=== PATIENT | male | born 1960 | race Hispanic/Latino ===

== ENCOUNTER 2016-12-24 12:36 | Emergency (ER) | payer OTHER ==
[2016-12-24 12:43] VITALS: BMI 27.9
[2016-12-24 12:45] VITALS: BP 141/83; PULSE 91; RESP 17; TEMP 97.7; O2SAT 98
--- NOTE | 2016-12-24 13:34 | ED PDOC ---
HPI: General Adult Time Seen by Provider: 12/24/16 13:05 Chief Complaint (Nursing): Abdominal Pain Chief Complaint (Provider): chest pain History Per: Patient (56 y/o male here for right sided chest pain noted 1 hour prior to ED arrival associated with moving boxes. Denies any sob. Took asa 324 x 2 prior to arrival. Denies any radiation of chest pain. Patient denies any DM /HTN/HLD/previous NE. Has family h/o early in brother age 31 secondary to drug use. Has had stress test evaluation for chest pain in past wnl.) Past Medical History Reviewed: Historical Data, Nursing Documentation, Vital Signs Vital Signs: Last Vital Signs Temp 97.7 F 12/24/16 12:43 Pulse 91 H 12/24/16 12:43 Resp 17 12/24/16 12:43 BP 141/83 12/24/16 12:43 Pulse Ox 98 12/25/16 13:44 - Medical History PMH: COPD - Family History Family History: States: No Known Family Hx - Social History Current smoker - smoking cessation education provided: Yes - Immunization History Hx Tetanus Toxoid Vaccination: No Hx Influenza Vaccination: No Hx Pneumococcal Vaccination: No - Home Medications Home Medications: Ambulatory Orders Medication Instructions Recorded Meclizine [Meclizine*] 25 mg PO Q8 #30 tab 09/10/16 - Allergies Allergies/Adverse Reactions: Allergies Allergy/AdvReac Type Severity Reaction Status Date / Time No Known Allergies Allergy Verified 05/27/16 10:47 Review of Systems ROS Statement: Except As Marked, All Systems Reviewed And Found Negative Cardiovascular: Positive for: Chest Pain Physical Exam - Reviewed Nursing Documentation Reviewed: Yes Vital Signs Reviewed: Yes - Physical Exam Appears: Positive for: Well, Non-toxic, No Acute Distress Head Exam: Positive for: ATRAUMATIC, NORMAL INSPECTION, NORMOCEPHALIC Skin: Positive for: Normal Color, Warm, DRY Eye Exam: Positive for: EOMI, Normal appearance, PERRL ENT: Positive for: Normal ENT Inspection Neck: Positive for: Normal, Painless ROM Cardiovascular/Chest: Positive for: Regular Rate, Rhythm Respiratory: Positive for: CNT, Normal Breath Sounds Gastrointestinal/Abdominal: Positive for: Normal Exam, Bowel Sounds, Soft Back: Positive for: Normal Inspection Extremity: Positive for: Normal ROM Neurologic/Psych: Positive for: Alert, Oriented - ECG O2 Sat by Pulse Oximetry: 98 - Progress ED Course And Treament: ekg: nsr 70bpm; no ectopy no acute changes noted patient does not want bloodwork/cxr at this time due to time constraints. States he would prefer to have testing at [facility] located near him. AMA paperwork discussed with him/signed by him. Leaving Against Medical Advice (AMA): This patient is choosing to leave against medical advice. The EP has personally explained to the pt that choosing to do so may result in permanent bodily harm or . The EP discussed at great length that without further evaluation and monitoring there may be unforeseen circumstances and/or deterioration causing permanent bodily harm or as a result of their choice. The pt verbalized these risks back to the physician in laymans terms. The pt is alert , oriented, and shows the mental capacity to make clear decisions regarding the pts health care at this time. The pt continues to wish to leave against medical advice. In light of the pts decision to leave AMA, follow-up has been arranged and the pt is aware of the importance of following up as instructed. The pt has been advised that they should return to the ED immediately if they change their mind at any time, or if thier condition begins to change or worsen in any way. Disposition - Clinical Impression Clinical Impression: Chest pain - Patient ED Disposition Is Patient to be Admitted: No - Disposition Disposition: Against Medical Advice Disposition Time: 13:36 Condition: FAIR Forms: [employer] ([place])
--- NOTE | 2016-12-25 17:45 | CARD ---
APPROVED REPORT EKG Measurement Heart [id number] <Conclusion> Normal sinus rhythm Normal ECG
== END 2016-12-24 14:01 | disposition left against medical advice (07) ==
LOC: H.ER 12:36
DX: R07.89 Other chest pain (principal); J44.9 Chronic obstructive pulmonary disease, unspecified

== ENCOUNTER 2017-11-09 13:54 | Emergency (ER) | payer OTHER ==
[2017-11-09 13:54] VITALS: BMI 30.1
[2017-11-09 14:03] VITALS: BP 156/81; PULSE 77; RESP 16; TEMP 97.7; O2SAT 98
[2017-11-09] MEDS ORDERED: Sodium Chloride 0.9% 1,000 ML IV STA (14:31)
--- NOTE | 2017-11-09 14:36 | ED PDOC ---
HPI: Chest Pain Time Seen by Provider: 11/09/17 14:12 Chief Complaint (Nursing): Chest Pain Chief Complaint (Provider): Chest pain History Per: Patient History/Exam Limitations: no limitations Onset/Duration Of Symptoms: Days (today) Additional Complaint(s): Pt. with chest pain left side that started suddenly. Went away on its own. No dyspnea, leg pain, headaches, dizziness, on hormone tx, or long distance travel. Seen by [employer] and had a stress and echo. Pending results. No pain or symptoms currently. Past Medical History Reviewed: Nursing Documentation, Vital Signs Vital Signs: Last Vital Signs Temp 97.7 F 11/09/17 14:01 Pulse 77 11/09/17 14:01 Resp 16 11/09/17 14:01 BP 156/81 H 11/09/17 14:01 Pulse Ox 98 11/09/17 14:01 - Medical History PMH: No Chronic Diseases Denies: Chronic Kidney Disease - Surgical History Surgical History: No Surg Hx - Family History Family History: States: Unknown Family Hx - Social History Alcohol: None Drugs: Denies - Immunization History Hx Tetanus Toxoid Vaccination: No Hx Influenza Vaccination: No Hx Pneumococcal Vaccination: No - Home Medications Home Medications: Ambulatory Orders Medication Instructions Recorded Azithromycin [Zithromax] 250 mg PO DAILY #4 tab 07/18/17 - Allergies Allergies/Adverse Reactions: Allergies Allergy/AdvReac Type Severity Reaction Status Date / Time No Known Allergies Allergy Verified 11/09/17 14:01 Review of Systems ROS Statement: Except As Marked, All Systems Reviewed And Found Negative Cardiovascular: Positive for: Chest Pain Physical Exam - Reviewed Nursing Documentation Reviewed: Yes Vital Signs Reviewed: Yes - Physical Exam Appears: Positive for: Non-toxic, No Acute Distress Head Exam: Positive for: ATRAUMATIC, NORMAL INSPECTION, NORMOCEPHALIC Skin: Positive for: Normal Color, Warm, DRY Eye Exam: Positive for: EOMI, Normal appearance, PERRL ENT: Positive for: Normal ENT Inspection Neck: Positive for: Normal, Painless ROM Cardiovascular/Chest: Positive for: Regular Rate, Rhythm Respiratory: Positive for: CNT, Normal Breath Sounds Gastrointestinal/Abdominal: Positive for: Normal Exam, Soft. Negative for: Tenderness Back: Positive for: Normal Inspection. Negative for: L CVA Tenderness, R CVA Tenderness Extremity: Positive for: Normal ROM. 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 Negative for: Motor/Sensory Deficits - ECG ECG: Positive for: Interpreted By Me, Viewed By Me ECG Rhythm: Positive for: Normal QRS, Normal ST Segment, Sinus Rhythm O2 Sat by Pulse Oximetry: 98 Pulse Ox Interpretation: Normal Disposition - Clinical Impression Clinical Impression: Chest pain - Patient ED Disposition Is Patient to be Admitted: No - Disposition Referrals: [facility] [Outside] - 11/10/17 Disposition: Against Medical Advice Disposition Time: 14:39 Condition: STABLE Additional Instructions: You are going against medical advice. You are refusing to get any testing or evaluation done. You are aware of possible or decreased functioning from chest pain. You are taking your own risk. Come back soon as possible for further evaluation. Instructions: Chest Pain
--- NOTE | 2017-11-10 08:02 | CARD ---
APPROVED REPORT Date of service: 11/09/2017 EKG Measurement Heart [id number] <Conclusion> Normal sinus rhythm Normal ECG
== END 2017-11-09 14:49 | disposition home or self-care (01) ==
LOC: H.ER 13:54
DX: R07.9 Chest pain, unspecified (principal)